=== PATIENT | male | born 1990 | race Caucasian/White ===

== ENCOUNTER → 2019-01-10 16:30 | Emergency (ER) | payer OTHER ==
[~2019-01-10 16:30] MED LIST: Tetan/Diph/Pertus SYR(Tdap)* 0.5 ML SYR(BOOSTRIX) use SYR IM ONE
== END | disposition home or self-care (01) ==
LOC: UCCORT 16:30
DX: Z23 Encounter for immunization (principal)
CPT/HCPCS: 90715